=== PATIENT | female | born 1975 | race Two or more races ===

== ENCOUNTER 2021-09-14 20:14 | Emergency (ER) | payer BC, MEDICAID ==
[~2021-09-14] VITALS: Ht 175.3 cm; Wt 158.8 kg
[2021-09-14 20:30] VITALS: BP 141/83
--- NOTE | 2021-09-14 20:33 | NUR ---
TO LOBBY A/W BED AMBULATORY
--- NOTE | 2021-09-14 20:38 | NUR ---
SEEN AND EXAMINED BY PA
[2021-09-14] MEDS ORDERED: ACETAMINOPHEN 325 MG TAB PO ONE (20:45)
[2021-09-14] MEDS ORDERED: NAPR-54 PO ×2 (20:47→21:31)
[2021-09-14] MEDS ORDERED: CEPH-588 PO ×3 (20:47→21:31)
[2021-09-14 22:30] VITALS: BP 141/83
--- NOTE | 2021-09-14 22:30 | NUR ---
Patient discharged with v/s stable. Written and verbal after care instructions given and explained. Patient alert, oriented and verbalized understanding of instructions. Ambulatory with steady gait. All questions addressed prior to discharge. ID band removed. Patient advised to follow up with PMD. Rx of KEFLEX, NAPROSYN given. Patient educated on indication of medication including possible reaction and side effects. Opportunity to ask questions provided and answered.
== END 2021-09-14 22:30 | disposition home or self-care (01) ==
LOC: MED 20:14
DX: N61.0 Mastitis without abscess (principal); Z79.899 Other long term (current) drug therapy
CPT/HCPCS: 99283